=== PATIENT | female | born 2000 | race Two or more races ===

== ENCOUNTER 2025-01-09 10:21 | Emergency (ER) | payer OTHER ==
[2025-01-09 10:29] VITALS: BP 149/86; PULSE 85; RESP 20; TEMP 98.2; BMI 21.1
[2025-01-09 12:28] LABS: ABSOLUTE IMMATURE GRANULOCYTES 0.02 x10^3/uL (0.0-0.031); BASOPHILS # 0.04 x10^3/uL (0.01-0.08); EOSINOPHIL % 0.2 % (0.7-5.8); EOSINOPHILS # 0.02 x10^3/uL (0.04-0.36); MCHC 32.8 g/dl (32.2-35.5); MEAN CELL VOLUME 87.8 fl (79.4-94.8); MEAN PLT VOLUME 8.4 fl (9.4-12.3); MONOCYTE # 0.86 x10^3/uL (0.24-0.86); MONOCYTE % 9.6 % (4.7-12.5); RDW 12.8 % (12.1-16.5)
[2025-01-09 12:36] LABS: INR 1.2 (0.83-1.09); PROTHROMBIN TIME (PATIENT) 13.2 SEC (9.7-13.0)
[2025-01-09 12:49] LABS: GLUCOSE,RANDOM 84.0 mg/dL (74-106); TOT PROT 8.2 g/dl (6.4-8.2)
[2025-01-09 12:50] LABS: CO2 19.0 mmol/L (21-32)
[2025-01-09 12:52] LABS: ALK PHOS 67.0 U/L (40-150)
[2025-01-09 12:55] LABS: CREATININE 0.82 mg/dL (0.55-1.3); SGOT/AST 32.0 U/L (5-34); SGPT/ALT 44.0 U/L (0-55)
[2025-01-09] MEDS ORDERED: LIDOCAINE 1%/EPI 1:100000 (20 ML MULTI DOSE VIAL) ONE (13:59)
[2025-01-09] MEDS: LIDOCAINE 1%/EPI 1:100000 (20 ML MULTI DOSE VIAL) IJ ONE (14:13)
[2025-01-09 16:14] LABS: HCV DIAGNOSTIC IN-HOUSE W/RFLX NON-REACTIVE (NONREACTIVE)
[2025-01-09 16:15] LABS: HIV INTERPRETATION NEGATIVE (NEGATIVE)
== END 2025-01-09 15:35 | disposition home or self-care (01) ==
LOC: JER 10:21
PROC: 0H9AXZZ Drainage of Inguinal Skin, External Approach (ICD-10-PCS; principal; 2025-01-09)
DX: L02.214 Cutaneous abscess of groin (principal)
CPT/HCPCS: 36415; 76856-TC; 80053; 85025; 85610; 86140; 86803; 87040; 87389; 99284-25